=== PATIENT | female | born 1960 | race Caucasian/White ===

== ENCOUNTER → 2020-08-02 13:08 | Outpatient (BNVA) | payer OTHER, SELFPAY | PROVIDERS: Family Provider Family Medicine; Visit Provider Nurse Practitioner Family | DX: Z11.59 Encounter for screening for other viral diseases (principal); Z20.828 Contact with and (suspected) exposure to other viral communicable diseases | CPT/HCPCS: 87635 ==

== ENCOUNTER 2020-10-06 13:19 | Outpatient (CLI) | payer SELFPAY ==
--- NOTE | 2020-10-06 13:44 | XRR_ITS ---
PROCEDURE INFORMATION: Exam: XR Chest, 2 Views Exam date and time: 10/06/2020 2:03 PM Age: 60 years old Clinical indication: Cough TECHNIQUE: Imaging protocol: XR of the chest Views: 2 views. COMPARISON: No relevant prior studies available. FINDINGS: Lungs: Unremarkable. No consolidation. Pleural space: Unremarkable. No pleural effusion. No pneumothorax. Heart/Mediastinum: Unremarkable. No cardiomegaly. Bones/joints: Unremarkable. XR/XR chest 2V* [id number] IMPRESSION: No acute findings.
== END 2020-10-06 13:20 | disposition home or self-care (01) ==
PROVIDERS: Visit Provider Nurse Practitioner Family
DX: R05 Cough (principal)
CPT/HCPCS: 71046

== ENCOUNTER 2024-04-22 13:47 | Outpatient (CLI) | payer SELFPAY | END 2024-04-22 13:48 | disposition home or self-care (01) | PROVIDERS: PCP Nurse Practitioner Family; Visit Provider Nurse Practitioner Family | DX: R06.2 Wheezing (principal) | CPT/HCPCS: 94010 ==

== ENCOUNTER 2024-07-02 07:05 | Outpatient (CLI) | payer MEDICAID, SELFPAY | END 2024-07-02 07:06 | disposition home or self-care (01) | PROVIDERS: PCP Nurse Practitioner Family; Visit Provider Nurse Practitioner Family | DX: R06.02 Shortness of breath (principal) | CPT/HCPCS: 94010; 94726; 94729 ==

== ENCOUNTER 2025-04-27 09:33 | Outpatient (CLI) | payer MEDICAID, SELFPAY ==
[2025-04-27 10:14] LABS: Basophils # 0.1 10^3/uL (0.0-0.1); Basophils % 1.2 %; Eosinophils # 0.1 10^3/uL (0.0-0.8); Eosinophils % 1.6 %; Hematocrit 43.8 % (36-47); Lymphocytes # 1.4 10^3/uL (0.8-4.8); Lymphocytes % 29.6 %; Mean Corpuscular HGB Conc 32.6 g/dL (30-55); Mean Corpuscular Hemoglobin 27.6 pg (27-33); Mean Corpuscular Volume 84.6 fl (85-98); Mean Platelet Volume 10.3 fL (7.4-10.4); Monocytes # 0.4 10^3/uL (0.2-0.9); Monocytes % 7.6 %; Neutrophils % 59.8 %; Nucleated Red Blood Cells % 0 %; Platelet Count 208 10^3/cmm (157-399); Red Blood Count 5.18 10^6/uL (3.85-5.65); Red Cell Distribution Width 13.9 % (12.1-15.1); White Blood Count 4.86 10^3/uL (3.29-11.43)
[2025-04-27 10:39] LABS: Anion Gap 16.1 (5-19); Blood Urea Nitrogen 12 mg/dL (8-23); Calcium 9.1 mg/dL (8.5-10.5); Carbon Dioxide 25 mmol/L (22-29); Chloride 108 mmol/L (98-107); Glomerular Filtration Rate 63.2 mL/min (90-130); Glucose 97 mg/dL (65-115); Osmolality Calculated 300 mOsm/kg (285-295); Potassium 4.1 mmol/L (3.5-5.1); Sodium 145 mmol/L (136-145)
[2025-04-27 10:53] LABS: INR 0.87 (0.83-1.21); Prothrombin Time (Patient) 12.5 Seconds (12.0-15.1)
== END 2025-04-27 09:34 | disposition home or self-care (01) ==
LOC: LAB 09:35
PROVIDERS: Visit Provider Internal Medicine Cardiovascular Disease
DX: I27.20 Pulmonary hypertension, unspecified (principal)
CPT/HCPCS: 36415; 80048; 85025; 85610

== ENCOUNTER 2025-07-16 09:14 | Outpatient (CLI) | payer MEDICAID, SELFPAY ==
--- NOTE | 2025-07-16 | ECG_ITS ---
[facility]less Test Date: 2025-07-16 Pat Name: Mallory Singh Department: Room: Gender: Female Auditing Coder: : 1960 Requested By: Sj Archer Order Number: [id number] Reading MD: SJ ARCHER Interpretive Statements Lung unchanged pre/post procedure; Intraprocedure shortess of breath; Symptoms resoled by discharge EXERCISE DATA: The patient was exercised by Felix protocol. Baseline heart rate was 79 beats per minute. Baseline blood pressure was 120/77 millimeters of mercury. Target heart rate was 156 beats per minute. Maximum heart rate achieved was 171 which was 109% of the target heart rate. Maximum blood pressure was 171/83 millimeters of mercury. Total exercise time was 7 minutes 36 seconds. Maximum METs achieved was 10.2, maximum VO2 was 35.7 the reason for ending the test was maximal effort achieved. The patient complained of shortness of breath during the stress test, which then resolved at the end of the test. ELECTROCARDIOGRAM: BASELINE: Showed sinus rhythm, normal axis, no significant ST-T changes at the baseline noted. [] EXERCISE: At the peak exercise level, [] No significant ST-T changes suggestive of ischemia noted. [] RECOVERY: During the recovery period, heart rate dropped appropriately. Moderate inferolateral ST depression noted CONCLUSION: 1. Exercise capacity good 2. Heart rate response was [appropriate 3. Blood pressure response was hypertensive 4. Symptoms not suggestive of ischemia. 5. Electrocardiogram portion of the stress test was Equivocal for ischemia. 6. Nuclear scan will be documented separately. Electronically Signed On 08-09-2025 21:06:39 CDT by SJ ARCHER [email or web address]
[2025-07-16 09:59] VITALS: BMI 27.4
--- NOTE | 2025-07-16 10:03 | NMCV_ITS ---
NM brandy perf SPECT r/s* [id number] Mallory Singh Age: 65 Gender: F : 1960 Exam Date: 07/16/2025 10:29 Ordering Phys: Sj Archer MD ([email or web address]) Technologist: NIKHIL García Exam Location: [facility] Indications: cp STRESS TEST Please see separate stress test report in [facility] for full findings IMAGE PROTOCOL Rest/Stress 1 Exercise Day Radiopharmaceutical Dose (mCi) Administration Site Administered by Rest: Tc-99m 10.9 IV Kiley Be, NIKHIL Sestamibi Stress:Tc-99m 32.7 IV Kiley Be, TECHNICAL SALES SUPPORT MANAGER Sestamibi Rest: 16-Jul-2025 60 Discovery 630 Stress: 16-Jul-2025 15 Discovery 630 Radiopharmaceutical was injected at 100% maximum heart rate. Images obtained in supine and prone position. SPECT RESULTS Technical Quality: Good Raw Data Analysis: Normal Image Corrections: No attenuation or motion correction applied Summed Stress Score: 6 Summed Rest Score: 7 Summed Difference Score: 2 PERFUSION FINDINGS Large area of fixed perfusion defect noted in basal distal inferior wall of the left ventricle showing moderate reversibility suggestive of old myocardial infarction surrounded by medium sized area of moderate NORM infarct ischemia in the RCA territory. FUNCTIONAL RESULTS (calculated via Gated SPECT) Stress Image LV EF (%): 74 Stress EDV (mL):66 TID: 0.54 Stress ESV (mL):17 FUNCTIONAL FINDINGS: There is normal left ventricular systolic function. No significant wall motion abnormality noted. IMPRESSIONS Large area of fixed perfusion defect noted in basal distal inferior wall of the left ventricle showing moderate reversibility suggestive of old myocardial infarction surrounded by medium sized area of moderate NORM infarct ischemia in the RCA territory. Sj Archer MD (Electronically Signed) Final Date: 20 July 2025 14:49 S
[2025-07-16 11:22] VITALS: BP 121/74; PULSE 104
== END 2025-07-16 09:15 | disposition home or self-care (01) ==
LOC: CDL 09:17
PROVIDERS: Visit Provider Internal Medicine Cardiovascular Disease
DX: R07.9 Chest pain, unspecified (principal); R93.1 Abnormal findings on diagnostic imaging of heart and coronary circulation
CPT/HCPCS: 36415; 78452; 93017; A9500

== ENCOUNTER 2025-08-17 05:50 | Outpatient (CLI) | payer MEDICAID, SELFPAY ==
[2025-08-17] VITALS (20 sets, daily range): BP systolic 95–136; BP diastolic 56–97; PULSE 48–74; RESP 10–19; O2SAT 96–99
--- NOTE | 2025-08-17 06:00 | XACV_ITS ---
Ht: 163 cm Wt: 73 kg BSA: 1.83 m2 Gender: Female : 1960 Any Known Allergies: No known allergies Exam Priority: Routine Indication(s): - Abnormal nuclear perfusion study Procedure(s): Procedure Description: Diagnostic procedure Procedure Description: Left Heart Catheterization Procedure Description: Left ventriculography Procedure Description: Coronary Angiography Suzi SULLIVAN; Diagnostic Cath Status: Elective Diagnostic Findings * Left Main has no disease. * Circumflex has no disease. * Right Coronary Artery has no disease. * Mid Left Anterior Descending to Distal Left Anterior Descending: luminal irregularities 20% stenosis, JOSE CARLOS: 3 flow. * Coronary angiography shows right dominance. PCI Indication: New Onset Angina <= 2 months Conclusions 1. There is luminal irregularities coronary artery disease with one vessel disease. 2. All byrne are normal. 3. Normal left ventricular systolic function. Ejection fraction of 60%. Recommendations * Continue current medical management and risk factor modification. Diagnostic RX Recommendation: medical therapy and/or counseling Ventriculography Ejection Fraction: 60.0 % Pressures Phase:Rest AO : / ( 6 ) @ 8:46:00 AM 133 / 64 ( 93 ) @ 8:52:00 AM 129 / 63 ( 93 ) @ 9:02:00 AM 125 / 54 ( 85 ) @ 9:02:00 AM 128 / 63 ( 92 ) @ 9:02:00 AM LV : 124 / -14 / 8 @ 9:00:00 AM 129 / -9 / 9 @ 9:01:00 AM 129 / -10 / 7 @ 9:01:00 AM 126 / -12 / 8 @ 9:02:00 AM Valves Phase:DefaultPhase AV : 0.0 @ 8:09:43 AM 0.0 @ 8:09:43 AM AV Mean Gradient: 0.0 @ 8:09:43 AM Clinical Evaluation EBL: 5mL-10mL Procedural Details Procedure Consent Obtained. Admit Source: Out Patient. Current Diagnosis : Chest Pain. Pre-Procedure Time Out. Identified patient by full name and date of as verbalized by the patient/guarantor. Does the consent match the physician's order: Yes. Accurate & Complete Informed Consent: Yes. Inpatient/Outpatient History & Physical on Chart: Yes. If H&P is completed, is and addenduem needed: No; If yes, is the addendum complete: N/A. Visualize and Verify Site with Patient/Guarantor: N/A. Relevant Radiology Images available: N/A. The risks, benefits, and alternatives of sedation and/or procedure were discussed by physician. The patient agrees to continue. Procedure started. [facility] Clinical Fraility Score: 3: Managing Well. Information Architect Indications: Other. Chest Pain Symptom Assessment: Typical Angina Symptoms. Cardiovascular Instability: No. Correct patient, site and procedure confirmed by cath team. Current diagnosis: Chest Pain; Abnormal Stress Test. PERRLA. Strong, equal hand building supervisor bilaterally. Lungs clear x 5 lobes. IV Site on Arrival: 20 gauge in the left anticubital. IV Fluids: 0.9% NaCl at KVO. 0 mL infused prior to incinerator plant laborer. Pre Procedural Pulses: bilateral posterior tibial was 1+. Pre Procedural Pulses: bilateral dorsalis pedis was 1+. Pre Procedural Pulses: bilateral radial was 2+. Oxygen started at 3liters/min via nasal canula. right groin was prepped with chloroprep then draped in the usual sterile fashion. right radial was prepped with chloroprep then draped in the usual sterile fashion. Physician notified. Baseline sample Acquired. HR: 70 BPM. Family updated by MD prior to the start of the procedure. Physician arrived. Physician scrubbed in. Immediate Pre-Procedure Time Out. Correct Patient: Yes; Correct Procedure: Yes; Correct Site: Yes; Correct Patient Position: Yes; Correct Supplies: Yes; Dried Flammable Prep: Yes; Blood Products Available: N/A;. Lidocaine 1% infiltrated to the right radial. Arterial access obtained. A 5 dutch TIG catheter in over wire. Multiple views taken of left coronary artery. Catheter redirected to the RCA. Multiple views taken of right coronary artery. Catheter removed over the exchange wire. A 5 dutch Angled Pig catheter in over wire. EDP Sample taken: LV 124/-15,8; HR: 69 BPM; SpO2: Off%. LV gram performed in HEARD @ 10 mL/second for a total of 30 mL. Patient EF: Normal. EDP Sample taken: LV 129/-10,9; HR: 73 BPM; SpO2: 96%. Pullback taken: LV 126/-13,8; AO 129/63(93); Mean: 0mmHg, Peak to Peak: 0mmHg, SEP: 6sec/min; HR: 72 BPM; SpO2: 96%. Catheter removed over the exchange wire. [id number]. A TR Band was successful obtaining hemostatsis at the Right Radial artery insertion site. TR band placed. Hemostasis obtained. Post-op diagnosis: Minimal luminal irregularietes. Complications: None. Estimated blood loss: 5mL-10mL. Responsiveness - Normal response to verbal stimuli; alert and oriented, PERRLA. Airway - Unaffected, no intervention required; spontaneous ventilation. Circulation: W/N/L, pulses unchanged. Nausea/Vomiting: No. Procedure completed. Patient transferred by wheelchair to CPRU. Post Procedure: Pulses reassessed and unchanged. PERRLA. Strong, equal hand building supervisor bilaterally. No VTE prophylaxis required. Medication's Wasted: Lidocaine 1% = , Verapamil = , Nitro = , Heparin = , Other = 0 mg. Total IV fluids: 30 mL. Fluoro: 2:09. Contrast type used: Omnipaque 300 mg/mL, 150 mL bottle. Vital chart was stopped. Access Site Site: Right Radial artery Sheath Size: 6 Fr Hemostasis Method: TR Band Hemostasis Success: Successful Procedure Medications Start: 7:39 AM Stop: 7:39 AM Medication: Versed Amount: 1 mg Route: I.V. Start: 7:40 AM Stop: 7:40 AM Medication: Fentanyl Amount: 50 mcg Route: I.V. Start: 7:42 AM Stop: 7:42 AM Medication: Versed Amount: 1 mg Route: I.V. Start: 7:48 AM Stop: 7:48 AM Medication: Nitrogylcerin Amount: 200 mcg Route: I.A. Start: 7:49 AM Stop: 7:49 AM Medication: Versed Amount: 1 mg Route: I.V. Start: 7:51 AM Stop: 7:51 AM Medication: Heparin Amount: 5000 units Route: I.V. I, the attending physician, have reviewed and verified all procedure medications. Yes, all medications given per verbal order History/Risk Factors Hypertension: Yes Dyslipidemia: No Peripheral Arterial Disease (PAD): No Myocardial Infarction (OR): No Obesity: No Renal Disease: No Tobacco Use: Never Prior Interventions PCI: No CABG: No Valve Surgery: No Report Signatures Finalized by Sj Archer MD on 08/30/2025 08:03 PM
[2025-08-17 06:23] LABS: Hematocrit 45.2 % (36-47); Hemoglobin 14.50 g/dL (11.27-16.99); Mean Corpuscular HGB Conc 32.1 g/dL (30-55); Mean Corpuscular Hemoglobin 27.9 pg (27-33); Mean Corpuscular Volume 87.1 fl (85-98); Nucleated Red Blood Cells % 0 %; Platelet Count 213 10^3/cmm (157-399); Red Blood Count 5.19 10^6/uL (3.85-5.65); White Blood Count 5.38 10^3/uL (3.29-11.43)
[2025-08-17 06:41] LABS: Anion Gap 14.6 (5-19); Blood Urea Nitrogen 12 mg/dL (8-23); Calcium 9.4 mg/dL (8.5-10.5); Carbon Dioxide 25 mmol/L (22-29); Chloride 105 mmol/L (98-107); Glucose 93 mg/dL (65-115); Osmolality Calculated 291 mOsm/kg (285-295); Potassium 3.6 mmol/L (3.5-5.1); Sodium 141 mmol/L (136-145)
--- NOTE | 2025-08-17 07:34 | P.HP_ITS ---
Same Day Surgery H&P Indication for Procedure/HPI DATE OF PROCEDURE: August 17, 2025 CHIEF COMPLAINT/INDICATIONFOR SURGICAL PROCEDURE: Unexplained shortness of breath angina equivalent Abnormal stress test PREOP DIAGNOSIS: Atypical chest pain/abnormal stress test PLANNED PROCEDURE: Operation Date: 08/17/25 07:00 Proposed Procedures p Cardiac Catheterization - [facility] w/WO LV and Coros(Left) - Sj Archer MD 65-year-old female struggling with unexplained shortness of breath at [facility] she was told that she has enlarged heart on the basis of x-ray, according to her echocardiogram also performed yearly couple of years ago she was told that it was normal no record available to us at that time. She has episode of COVID-pneumonia in the past since then she has not regained her breath. Since he continues to worsen and started having chest pressure as well we wanted to investigate her with right heart cath however it was denied by the insurance. Insurance also suggested that we should do stress test instead to rule out ischemia as a cause of atypical chest pressure and shortness of breath. Patient does admits to chest pressure off and on basis and during the stress that she also has chest pressure. Nuclear portion of the stress test was suggestive of moderate ischemia in the inferior wall. It is the reason patient is here for left heart cath today. ROS Shortness of breath upon mild exertion as well as at rest Medications/Allergies* Allergies/Adverse Reactions Allergy/AdvReac Type Severity Reaction Status Date / Time No Known Allergies Allergy Unverified 08/17/25 06:03 Current Medications: Generic Name Dose Route Start Last Admin Trade Name Freq PRN Reason Stop Dose Admin Sodium Chloride 1,000 mls @ 50 mls/hr 08/17/25 06:00 08/17/25 06:03 Sodium Chloride 0.9% IV 08/18/25 01:59 Not Given .Q20H ONE Pertinent History/Comorbid Conditions* Medical History (Updated 05/02/25 @ 10:27 by Betsy Yang) Palpitations Social History Smoking and tobacco/nicotine status: never used tobacco/nicotine Second hand smoke exposure: No Alcohol intake: never Substance/Drug Use: never Adopted: No Caregiver/support person: No Lives independently: Yes Household members: spouse Housing: House Marital status: Number of children: 3 Number of grandchildren: 9 Highest education level completed: Associate Degree: Occupational, Technical, Vocational Program service: No Current occupational status: employed Current occupation: [employer] Current occupational exposures/hazards: No Pets and animals: Yes Pets & animals: farm animals Leisure activites: exercise Do you think of yourself as: Straight/Heterosexual Current gender identity: Female Special karena needs: No Agree to transfusion: Yes Pertinent Exam Findings alert, oriented x 3, clear to auscultation bilaterally, regular rate & rhythm, operative site marked and procedure specific exam findings GENERAL: Patient is alert, awake and oriented x3. HEART: Regular S1 and S2. No murmur, rub or gallop. LUNGS: Clear to auscultate bilaterally. CENTRAL NERVOUS SYSTEM: Grossly nonfocal. Conscious Sedation Assessment PATIENT ASSESSED PRIOR TO SEDATION, WITH NO CHANGE NOTED: Yes AIRWAY EVAL/ANESTHESIA PLAN: ASA II and Risks, benefits & alternatives of sedation and/or procedure discussed Recommendations Risks and benefits of procedure reviewed and Patient/family agree to proceed Other Other Plans: Patient has been explained all risk-benefit and alternative for the procedure. Patient understand 2% risk of stroke major bleed. Patient restand 5. Risk of minor bleeding oozing infection hematoma contrast-induced nephropathy urgent emergent vascular bypass surgery. Patient would like to proceed with it. Coding Level of Care Code Acute Code for Chg Fwd
--- NOTE | 2025-08-17 08:45 | PC.NURSE ---
received pt from manufacturing laborer post diagnostic left heart. pt alert and oriented x3. pt complains of no pain. tr band on right wrist with no hematoma or bruising noted. pt and family educated on restrictions of right wrist. both stated understanding. pt to be educated throughout recovery as needed.
--- NOTE | 2025-08-17 10:15 | PC.NURSE ---
TR bank off per protocol at 1015. As site was being cleansed with warm water the artery started to bleed. Manual pressure was held by this nurse until help was available at 1030 to assist with placing the TR band back on. The TR band went on at 1030 with 8ml of air in it. Dr. Archer was notified with no new orders. Will begin the TR band removal protocol over. The patient tolerated well. No bleeding or hematoma noted. TR band activity instructions and the need to call for help if any bleeding occurs were explained to the patient and her spouse with their understanding voiced.
--- NOTE | 2025-08-17 12:32 | PC.NURSE ---
TR band off per protocol. Right wrist area cleansed with warm water and patted dry. A large band aid was applied to the site and loosely secured with coban. No bleeding or hematoma noted. Palpable radial pulse. Patient tolerated well.
== END 2025-08-17 05:51 | disposition home or self-care (01) ==
PROVIDERS: Visit Provider Internal Medicine Cardiovascular Disease
DX: I25.118 Atherosclerotic heart disease of native coronary artery with other forms of angina pectoris (principal); I10 Essential (primary) hypertension; R00.2 Palpitations
CPT/HCPCS: 36415; 80048; 85025; 93458; 99152; 99153; C1769; C1887; C1894; J1644; J2250; J3010; J3490; J7030; J9999; Q0163; Q9967

== ENCOUNTER 2025-08-27 05:47 | Outpatient (CLI) | payer MEDICAID, SELFPAY ==
[2025-08-27] VITALS (11 sets, daily range): BP systolic 111–157; BP diastolic 43–78; PULSE 50–70; RESP 12–18; TEMP 36.6; O2SAT 96–99; BMI 27.4
--- NOTE | 2025-08-27 06:00 | XACV_ITS ---
Exam Room: 2 Ht: 163 cm Wt: 73 kg BSA: 1.83 m2 Gender: Female : 1960 Any Known Allergies: No known allergies Exam Priority: Routine Procedure(s): Procedure Description: Diagnostic procedure Procedure Description: Right Heart Catheterization Procedure Description: O2 saturation Suzi SULLIVAN; Diagnostic Cath Status: Elective Conclusions 1. Indication of right heart catheterization: Unexplained shortness of breath with possible pulmonary hypertension Pulmonary capillary wedge pressure 13 mmHg PA mean 23 mmHg RV 39/6 mmHg with mean of 11 mmHg RA 11 mmHgNo significant stepup noted, no intracardiac shunt notedCardiac output by Cyn 3 L/min, cardiac index 2.0 L/min/m2. Recommendations * Usual post-cath care. Diagnostic RX Recommendation: medical therapy and/or counseling Pressures Phase:Rest RV : 39 / 6 / 11 @ 8:44:00 AM PA : 44 / 10 ( 23 ) @ 8:43:00 AM RA : a wave = 13 v wave = 12 mean = 11 @ 8:46:00 AM PCW : a wave = 15 v wave = 16 mean = 13 @ 8:44:00 AM O2 Content Phase:Rest PA : O2 Content O2: 75.9 @ 8:46:00 AM Saturations Phase:Rest AO : 100 @ 8:44:00 AM RA : 76 @ 8:44:00 AM RV : 75 @ 8:43:00 AM PA : 76 @ 8:46:00 AM Cardiac Output Phase:Rest Cyn : 3 @ 8:02:07 AM Cyn Cardiac Index: 2 @ 8:02:07 AM Flow Phase:Rest Qp : 3 @ 8:02:07 AM Qs : 3 @ 8:02:07 AM Clinical Evaluation EBL: 5mL-10mL Procedural Details Procedure Consent Obtained. Pre-Procedure Time Out. Identified patient by full name and date of as verbalized by the patient/guarantor. Does the consent match the physician's order: Yes. Accurate & Complete Informed Consent: Yes. Inpatient/Outpatient History & Physical on Chart: Yes. If H&P is completed, is and addenduem needed: No. Visualize and Verify Site with Patient/Guarantor: N/A. Relevant Radiology Images available: Yes. The risks, benefits, and alternatives of sedation and/or procedure were discussed by physician. The patient agrees to continue. Procedure started. [facility] Clinical Fraility Score: 3: Managing Well. [place] Operator Indications: Pulmonary hypertension. Chest Pain Symptom Assessment: Asymptomatic. Cardiovascular Instability: No. Correct patient, site and procedure confirmed by cath team. PERRLA. Strong, equal hand shipping and receiving weigher bilaterally. Lungs clear x 5 lobes. IV Site on Arrival: 20 gauge in the right anticubital for the RHC. IV Site on Arrival: 20 gauge in the left anticubital. IV Fluids: 0.9% NaCl at KVO. 0 mL infused prior to specialist employee labor relations. Pre Procedural Pulses: bilateral dorsalis pedis was 3+. Pre Procedural Pulses: bilateral posterior tibial was 3+. Pre Procedural Pulses: bilateral radial was 3+. Patient to be on room air for the procedure. right brachial was prepped with chloroprep then draped in the usual sterile fashion. Physician notified. Patient's family is in CPRU room #3. Dr. Archer will update at the completion of the procedure. Equipment: 6F - Radial. Cardiac Cath Pack. ACIST Manifold Kit Model BT 2000. Heparinized Saline (2 units/mL), 1000 mL bag. Baseline sample Acquired. HR: 60 BPM. Physician arrived. Physician scrubbed in. Immediate Pre-Procedure Time Out. Correct Patient: Yes; Correct Procedure: Yes; Correct Site: Yes; Correct Patient Position: Yes; Correct Supplies: Yes; Dried Flammable Prep: Yes; Blood Products Available: N/A. Micropuncture wire in through the existing 20g PIV in the right brachial vein. 20g PIV cath out. Lidocaine 1% infiltrated to the right brachial. [place]-Siddhartha catheter inserted. 0.014 [place] guidewire in through the swan. Oximetry samples were obtained. Normal venous range: 60-85%. Normal arterial range: 95-100%. Pressure measurements obtained. ABG drawn and sent with respiratory therapy. [place]Siddhartha out. Physician scrubbed out. A Manual Compression was successful obtaining hemostatsis at the Right Brachial Vein insertion site. Post Procedure: Pulses reassessed and unchanged. PERRLA. Strong, equal hand shipping and receiving weigher bilaterally. No VTE prophylaxis required. Medication's Wasted: Lidocaine 1% = 18 mL. Medication's Wasted: Heparin = 1000 units. Total IV fluids: 30 mL. Post-op diagnosis: normal RHC pressures. Complications: none. Estimated blood loss: 5mL-10mL. Responsiveness - Normal response to verbal stimuli; alert and oriented, PERRLA. Airway - Unaffected, no intervention required; spontaneous ventilation. Circulation: W/N/L, pulses unchanged. Nausea/Vomiting: No. Vital chart was stopped. Procedure completed. Patient transferred by wheelchair to CPRU. Access Site Site: Right Brachial Vein Sheath Size: 6 Fr Hemostasis Method: Manual Compression Hemostasis Success: Successful Procedure Medications Start: 7:27 AM Stop: 7:27 AM Medication: Versed Amount: 1 mg Route: I.V. Start: 7:27 AM Stop: 7:27 AM Medication: Fentanyl Amount: 25 mcg Route: I.V. Start: 7:32 AM Stop: 7:32 AM Medication: Versed Amount: 1 mg Route: I.V. Start: 7:39 AM Stop: 7:39 AM Medication: Fentanyl Amount: 25 mcg Route: I.V. Start: 7:45 AM Stop: 7:45 AM Medication: Fentanyl Amount: 25 mcg Route: I.V. Start: 7:50 AM Stop: 7:50 AM Medication: Fentanyl Amount: 25 mcg Route: I.V. I, the attending physician, have reviewed and verified all procedure medications. Yes, all medications given per verbal order History/Risk Factors Hypertension: Yes Dyslipidemia: No Peripheral Arterial Disease (PAD): No Myocardial Infarction ([place]): No Obesity: No Renal Disease: No Tobacco Use: Never Prior Interventions PCI: No CABG: No Valve Surgery: No Report Signatures Finalized by Sj Archer MD on 09/05/2025 02:08 PM
--- NOTE | 2025-08-27 07:29 | W.PM.OPSUD ---
Surgery/Procedure H&P Update DATE OF PROCEDURE: August 27, 2025 DATE H&P PERFORMED: 08/24/25 H&P UPDATE INFORMATION: I have reviewed H&P completed within last 30 days, I have examined patient prior to procedure and No changes to prior documentation CHANGES TO PREVIOUS DOCUMENTATION: Unexplained shortness of breath PREOP DIAGNOSIS: Unexplained shortness of breath PRIMARY INDICATION FOR PROCEDURE: Right heart cath PLANNED PROCEDURE: Operation Date: 08/27/25 10:00 Proposed Procedures p Cardiac Catheterization(Right) - Sj Archer MD PATIENT REASSESSED PRIOR TO SEDATION, WITH NO CHANGE NOTED: Yes PHYSICAL EXAM: alert, oriented x 3, clear to auscultation bilaterally, regular rate & rhythm and operative site marked AIRWAY EVAL/ANESTHESIA PLAN: ASA II, Risks, benefits & alternatives of sedation and/or procedure discussed and Patient agrees to continue as planned ADDITIONAL INFORMATION: All risk-benefit and alternative for the procedure has been explained to the patient. Patient understand 1% risk of stroke major bleed. Patient understands 5% risk of minor bleeding oozing infection hematoma contrast induced nephropathy urgent or emergent vascular surgery. She would like to proceed with it. She understand 2% risk of pulmonary venous capillary rupture pulmonary embolism. She clearly understood and would like to proceed with it
[2025-08-27 07:54] LABS: Arterial Blood Gas Hematocrit 42.2 % (37-47); Blood Gas Operator Identificat AMH; Blood Gas Sample Site PA; Blood Gas Sample Type Not specified; Carboxyhemoglobin 0.7 %THgb (0.4-20.1); Methemoglobin 0.9 % (0.4-1.5)
[2025-08-27 07:56] LABS: Arterial Blood Gas Hematocrit 41.1 % (37-47); Blood Gas Operator Identificat AMH; Blood Gas Sample Site RV; Blood Gas Sample Type Not specified; Carboxyhemoglobin 0.7 %THgb (0.4-20.1); Methemoglobin 0.9 % (0.4-1.5)
[2025-08-27 07:58] LABS: Arterial Blood Gas Hematocrit 41.0 % (37-47); Blood Gas Operator Identificat AMH; Blood Gas Sample Site RA; Blood Gas Sample Type Not specified; Carboxyhemoglobin 0.8 %THgb (0.4-20.1); Methemoglobin 0.8 % (0.4-1.5)
--- NOTE | 2025-08-27 08:20 | SUR.PHASEII ---
iv set at 100 ml/hr post cath.
--- NOTE | 2025-08-27 08:25 | SUR.PHASEII ---
POST CATH NOTE Received patient from the laboratory specialist. Status post Right heart catheterization via the right brachial approach. Manual compression bandage in place to the right brachial access site. Verbal post cath instructions went over with the patient/family. They understood well. Vitals and assessments per flowsheet. See PCS documentation for vitals and assessments. Call light within reach. Informed to call for needs.
--- NOTE | 2025-08-27 09:18 | SUR.PHASEII ---
FLUID BOLUS 250 ML FLUID BOLUS GIVEN ORDERED.
[2025-08-27] MEDS: ondansetron 2 mg/ML SDV 2 mL 4 MG IVP (09:19)
== END 2025-08-27 10:15 | disposition home or self-care (01) ==
PROVIDERS: Visit Provider Internal Medicine Cardiovascular Disease
DX: R06.02 Shortness of breath (principal); I10 Essential (primary) hypertension; Z87.891 Personal history of nicotine dependence; R00.2 Palpitations; R00.1 Bradycardia, unspecified
CPT/HCPCS: 36415; 82810; 93451; 99152; 99153; C1751; C1769; C1894; J1644; J2250; J2405; J3010; J7030; J9999